=== PATIENT | female | born 1955 | race Caucasian/White ===

== ENCOUNTER 2016-02-23 14:07 | Outpatient (CLI) | payer OTHER ==
--- NOTE | 2016-02-23 15:29 | RAD ---
4 VIEWS OF LEFT KNEE: Date: 02/23/16 COMPARISON: None. HISTORY: 60-year-old female with pain for 6 months, no history of trauma. FINDINGS: No fracture or dislocation. No radiopaque foreign body or subcutaneous gas. Probable trace knee joint effusion. IMPRESSION: No acute osseous abnormality. POS: [facility]
--- NOTE | 2016-02-23 15:33 | RAD ---
FOUR VIEWS RIGHT KNEE: Date: 02-23-16 Comparison: None. History: Pain for six months, no history of trauma. FINDINGS: No fracture or dislocation. No radiopaque foreign body or subcutaneous gas. No knee joint effusion . IMPRESSION: No acute findings. POS: [facility]
--- NOTE | 2016-02-23 15:34 | RAD ---
TWO VIEWS LEFT HIP: Date: 02-23-16 Comparison: None. History: Pain for six months. No history of trauma. FINDINGS: No fracture or dislocation. No radiopaque foreign body or subcutaneous gas. IMPRESSION: No acute findings. POS: [facility]
--- NOTE | 2016-02-23 16:19 | RAD ---
TWO VIEWS RIGHT HIP: Date: 02-23-16 Comparison: None. History: Right hip pain with no history of trauma. FINDINGS: There is mild lateral acetabular osteophyte formation. No significant joint space narrowing. No fr acture or evidence of dislocation is seen. IMPRESSION: No acute osseous abnormality. If symptoms persist, MRI suggested. POS: [facility]
== END 2016-02-23 14:08 | disposition home or self-care (01) ==
LOC: MADRAD 14:07
PROVIDERS: ATTEND Family Medicine
DX: M25.551 Pain in right hip (principal); M25.552 Pain in left hip; M25.562 Pain in left knee; M25.561 Pain in right knee

== ENCOUNTER 2016-04-07 14:25 | Outpatient (CLI) | payer OTHER ==
[2016-04-07 14:57] LABS: #Basophils 0.1 thou/uL (0.0-0.2); #Eosinphils 0.2 thou/uL (0.0-0.7); #Lymphocytes 2.8 thou/uL (1.20-3.40); #Monocytes 0.6 thou/uL (0.11-0.59); #Neutrophils 5.3 thou/uL (1.40-6.50); %Basophils 0.9 % (0.0-1.0); %Eosinophils 1.9 % (0.0-10.0); %Lymphocytes 31.3 % (21.0-51.0); %Monocytes 6.7 % (0.0-10.0); %Neutrophils 59.1 % (42.0-75.0); Hemoglobin 11.1 g/dL (12.0-16.0); Mean Corpuscular HGB CONC 31.6 g/dL (32.0-36.0); Mean Corpuscular Hemoglobin 26.8 pg (27.0-31.0); Mean Corpuscular Volume 84.7 fl (81.0-99.0); Mean Platelet Volume 7.8 fL (7.4-10.4); Platelet Count 307 thou/uL (130-400); RBC Distribution Width 16.9 % (11.5-14.5); Red Blood Cell (RBC) Count 4.16 mill/uL (4.20-5.40)
[2016-04-07 15:06] LABS: Hemoglobin A1c 5.4 % (4.0-6.0)
[2016-04-07 15:19] LABS: ALT (SGPT) 8 U/L (0-55); AST (SGOT) 14 U/L (5-34); Albumin 4.1 g/dL (3.5-5.0); Alkaline Phosphatase 106 U/L (40-150); Anion Gap 17 mmol/L (10-20); BUN (Urea Nitrogen) 12 mg/dL (9.8-20.1); Bilirubin, Total Less than 0.3 mg/dL (0.2-1.2); CK (CPK) 53 U/L (29-168); CRP (Inflammatory) 2.33 mg/dL (= or < 0.5); Calc. Creatinine Clearance 0 mL/min (70-130); Calcium 9.5 mg/dL (7.8-10.44); Carbon Dioxide 26 mmol/L (22-29); Chloride 101 mmol/L (98-107); Estimated GFR-MDRD 78; Glucose 91 mg/dL (70-105); Potassium 3.7 mmol/L (3.5-5.1); Protein, Total 7.1 g/dL (6.0-8.3); Sodium 140 mmol/L (136-145)
[2016-04-07 16:14] LABS: Thyroid Stimulating Hormone 1.7286 uIU/mL (0.35-4.94); Vitamin D, 25 Hydroxy 29.3 ng/mL (> 30.0)
[2016-04-09 07:28] LABS: Antinuclear AB Negative (Negative)
[2016-04-11 09:09] LABS: Lyme IgG/IgM AB <0.91 ISR (0.00-0.90)
[2016-04-12 13:15] LABS: Vitamin B6-Pyridoxal Phosphate 5.5 ug/L (2.0-32.8)
== END 2016-04-07 14:26 | disposition home or self-care (01) ==
LOC: MADLAB 14:25
PROVIDERS: ATTEND Student in an Organized Health Care Education/Training Program
DX: E53.8 Deficiency of other specified B group vitamins (principal); E55.9 Vitamin D deficiency, unspecified; E51.9 Thiamine deficiency, unspecified; M62.89 Other specified disorders of muscle; E53.1 Pyridoxine deficiency; M25.50 Pain in unspecified joint; R20.2 Paresthesia of skin
CPT/HCPCS: 36415; 80053; 82306; 82550; 82607; 83036; 84207; 84425; 84443; 85025; 85652; 86038; 86140; 86430; 86618

== ENCOUNTER 2016-07-20 10:40 | Outpatient (CLI) | payer OTHER ==
[2016-07-20 11:23] LABS: Hemoglobin A1c 5.5 % (4.0-6.0)
[2016-07-20 11:40] LABS: ALT (SGPT) 18 U/L (8-55); AST (SGOT) 15 U/L (5-34); Albumin 3.9 g/dL (3.5-5.0); Alkaline Phosphatase 67 U/L (40-150); Anion Gap 13 mmol/L (10-20); BUN (Urea Nitrogen) 17 mg/dL (9.8-20.1); Bilirubin, Total 0.3 mg/dL (0.2-1.2); Calc. Creatinine Clearance 0 mL/min (70-130); Calcium 9.1 mg/dL (7.8-10.44); Carbon Dioxide 26 mmol/L (22-29); Cardiac Risk 2.4 (Less than 4.5); Chloride 104 mmol/L (98-107); Cholesterol 197 mg/dl (< 200 Desired); Estimated GFR-MDRD 61; Globulin 2.7 g/dL (2.4-3.5); Glucose 152 mg/dL (70-105); HDL Cholesterol 82 mg/dL (>60 Neg Risk); LDL Cholesterol, Calculated 99 mg/dL; Protein, Total 6.6 g/dL (6.0-8.3); Sodium 139 mmol/L (136-145); Triglycerides 82 mg/dL (Less than 150)
[2016-07-20 12:05] LABS: #Lymphocytes 1.4 thou/uL (1.20-3.40); #Monocytes 0.2 thou/uL (0.11-0.59); #Neutrophils 11.6 thou/uL (1.40-6.50); %Basophils 0.3 % (0.0-1.0); %Eosinophils 0.1 % (0.0-10.0); %Lymphocytes 10.3 % (21.0-51.0); %Monocytes 1.2 % (0.0-10.0); %Neutrophils 88.1 % (42.0-75.0); Hemoglobin 12.3 g/dL (12.0-16.0); Mean Corpuscular HGB CONC 30.9 g/dL (32.0-36.0); Mean Corpuscular Hemoglobin 27.3 pg (27.0-31.0); Mean Corpuscular Volume 88.3 fl (81.0-99.0); Mean Platelet Volume 8.1 fL (7.4-10.4); Platelet Count 302 thou/uL (130-400); RBC Distribution Width 17.7 % (11.5-14.5); White Blood Cell (WBC) Count 13.2 thou/uL (4.8-10.8)
[2016-07-20 12:43] LABS: Thyroid Stimulating Hormone 0.634 uIU/mL (0.35-4.94); Vitamin D, 25 Hydroxy 29.9 ng/ml (> 30.0)
== END 2016-07-20 10:41 | disposition home or self-care (01) ==
LOC: MADLABBHPM 10:40
PROVIDERS: ATTEND Family Medicine
DX: Z00.00 Encounter for general adult medical examination without abnormal findings (principal)
CPT/HCPCS: 36415; 80053; 80061; 82306; 83036; 84443; 85025

== ENCOUNTER 2016-09-29 10:08 | Outpatient (CLI) | payer OTHER | END 2016-09-29 10:09 | disposition home or self-care (01) | LOC: MADLABBHPM 10:08 | PROVIDERS: ATTEND Family Medicine | DX: R30.0 Dysuria (principal) | CPT/HCPCS: 36415; 87077; 87086; 87186 ==

== ENCOUNTER 2017-12-15 11:35 | Outpatient (CLI) | payer BC, OTHER ==
[2017-12-15 13:04] LABS: Bilirubin Negative (Negative); Blood, Urine Negative (Negative); Clarity Clear (Clear); Glucose, Urine (Dipstick) Negative (Negative); Leukocyte Trace (Negative); Nitrite Negative (Negative); Protein, Urine (Dipstick) Negative (Neg-Trace); Urobilinogen 0.2 mg/dL (0.2-1.0)
[2017-12-15 13:11] LABS: Bacteria/HPF Rare-Few HPF (None Seen); RBC/HPF 0-3 HPF (0-3); Squamous Epithelial 0-3 HPF (0-3)
== END 2017-12-15 11:36 ==
LOC: MADLABBHPM 11:35
PROVIDERS: ATTEND Family Medicine
DX: R30.0 Dysuria (principal)
CPT/HCPCS: 81001; 87086

== ENCOUNTER 2017-12-18 20:21 | Emergency (ER) | payer BC ==
[2017-12-18 20:47] LABS: #Basophils 0.1 thou/uL (0.0-0.2); #Eosinphils 0.1 thou/uL (0.0-0.7); #Lymphocytes 4.3 thou/uL (1.20-3.40); #Monocytes 0.7 thou/uL (0.11-0.59); #Neutrophils 13.5 thou/uL (1.40-6.50); %Basophils 0.5 % (0.0-1.0); %Eosinophils 0.3 % (0.0-10.0); %Lymphocytes 22.8 % (21.0-51.0); %Monocytes 3.9 % (0.0-10.0); %Neutrophils 72.4 % (42.0-75.0); Hemoglobin 12.5 g/dL (12.0-16.0); Mean Corpuscular HGB CONC 34.5 g/dL (32.0-36.0); Mean Corpuscular Hemoglobin 31.9 pg (27.0-31.0); Mean Corpuscular Volume 92.5 fL (78.0-98.0); Mean Platelet Volume 7.4 fL (7.4-10.4); Platelet Count 407 thou/uL (130-400); RBC Distribution Width 13.3 % (11.5-14.5); Red Blood Cell (RBC) Count 3.93 mill/uL (4.20-5.40); White Blood Cell (WBC) Count 18.6 thou/uL (4.8-10.8)
[2017-12-18 21:06] LABS: ALT (SGPT) 17 U/L (8-55); AST (SGOT) 20 U/L (5-34); Albumin 4.1 g/dL (3.4-4.8); Alkaline Phosphatase 107 U/L (40-150); Anion Gap 17 mmol/L (10-20); BUN (Urea Nitrogen) 14 mg/dL (9.8-20.1); Bilirubin, Total 0.4 mg/dL (0.2-1.2); Calc. Creatinine Clearance 0 mL/min (70-130); Calcium 9.8 mg/dL (7.8-10.44); Carbon Dioxide 26 mmol/L (23-31); Chloride 101 mmol/L (98-107); Estimated GFR-MDRD 43; Globulin 2.5 g/dL (2.4-3.5); Glucose 140 mg/dL (80-115); Lipase 38 U/L (8-78); Potassium 4.1 mmol/L (3.5-5.1); Protein, Total 6.6 g/dL (6.0-8.3); Sodium 140 mmol/L (136-145)
[2017-12-18] MEDS ORDERED: Morphine 4 MG/ML VIAL ONE (21:18)
--- NOTE | 2017-12-18 21:23 | RAD ---
CHEST PA AND LATERAL TWO VIEWS: History: 62-year-old female with left sided chest pain. FINDINGS: There is a left sided breast prosthesis. Heart size is within normal limits. The lungs are clear. No pneumonia, edema, or pleural effusion or other acute process. Minimal biapical pleural thickening. IMPRESSION: No acute intrathoracic disease. No pneumothorax or pleural effusion. Biapical pleural thickening. POS: [facility]
--- NOTE | 2017-12-18 21:24 | RAD ---
LEFT RIBS TWO VIEWS: History: 62-year-old female with left chest pain. FINDINGS: Left breast implant is noted. There is some motion artifact on the AP radiograph. No evidence for acu te rib fracture. No pneumothorax or pleural effusion. IMPRESSION: No convincing evidence for acute rib fracture. No pneumothorax or pleural effusion. Left apical pleur al thickening. POS: [facility]
[2017-12-18] MEDS ORDERED: Acetaminophen 500 MG TAB ONE ×2 (21:48)
[2017-12-18] MEDS ORDERED: Phenergan/Codeine 10-6.25mg/5ml UDCUP ONE (21:51)
== END 2017-12-18 22:10 | disposition home or self-care (01) ==
LOC: MADERS 20:21
DX: R07.89 Other chest pain (principal); R05 Cough; J45.909 Unspecified asthma, uncomplicated; F41.9 Anxiety disorder, unspecified; F17.210 Nicotine dependence, cigarettes, uncomplicated; Z79.899 Other long term (current) drug therapy
CPT/HCPCS: 71046; 80053; 83690; 84484; 85025; 93005; 96374; J2270

== ENCOUNTER 2023-01-29 09:28 | Emergency (ER) | payer MEDICARE | END 2023-01-29 10:20 | disposition home or self-care (01) | LOC: MADERS 09:28 | DX: B02.9 Zoster without complications (principal); K29.70 Gastritis, unspecified, without bleeding; F17.210 Nicotine dependence, cigarettes, uncomplicated | CPT/HCPCS: 99283 ==

== ENCOUNTER 2023-03-11 11:06 | Outpatient (CLI) | payer MEDICARE | END 2023-03-11 11:07 | disposition home or self-care (01) | LOC: MADRAD 11:06 | PROVIDERS: ATTEND Internal Medicine | DX: J45.901 Unspecified asthma with (acute) exacerbation (principal); M41.9 Scoliosis, unspecified; R91.8 Other nonspecific abnormal finding of lung field | CPT/HCPCS: 71046; 72081 ==

== ENCOUNTER 2023-06-29 14:24 | Emergency (ER) | payer MEDICARE ==
[2023-06-29] MEDS ORDERED: Dexamethasone 10 MG/ML VIAL ONE (15:40)
[2023-06-29] MEDS ORDERED: Lidocaine 4% Patch ONE (15:41)
== END 2023-06-29 16:10 | disposition home or self-care (01) ==
LOC: MADERS 14:24
DX: M54.50 Low back pain, unspecified (principal); G89.29 Other chronic pain; I73.9 Peripheral vascular disease, unspecified; F17.210 Nicotine dependence, cigarettes, uncomplicated
CPT/HCPCS: 96372; 99283; J1100

== ENCOUNTER 2023-08-22 15:07 | Emergency (ER) | payer MEDICARE ==
[2023-08-22 16:39] LABS: #Basophils 0.1 thou/uL (0.0-0.2); #Eosinphils 0.6 thou/uL (0.0-0.7); #Lymphocytes 2.1 thou/uL (1.20-3.40); #Monocytes 0.8 thou/uL (0.11-0.59); #Neutrophils 5.4 thou/uL (1.40-6.50); %Basophils 1.3 % (0.0-1.0); %Eosinophils 6.5 % (0.0-10.0); %Monocytes 9.4 % (0.0-10.0); %Neutrophils 59.8 % (42.0-75.0); Hematocrit 37.3 % (36.0-47.0); Hemoglobin 11.9 g/dL (12.0-16.0); Mean Corpuscular HGB CONC 31.7 g/dL (32.0-36.0); Mean Corpuscular Hemoglobin 29.1 pg (27.0-31.0); Mean Corpuscular Volume 91.8 fl (78.0-98.0); Mean Platelet Volume 7.3 fL (7.4-10.4); Platelet Count 313 10x3/uL (130-400); RBC Distribution Width 14.8 % (11.5-14.5); Red Blood Cell (RBC) Count 4.07 mill/uL (4.20-5.40)
[2023-08-22 16:50] LABS: ALT (SGPT) Less than 7 U/L (8-55); AST (SGOT) 13 U/L (5-34); Albumin 3.7 g/dL (3.4-4.8); Alkaline Phosphatase 128 U/L (40-110); Anion Gap 15 mmol/L (10-20); BUN (Urea Nitrogen) 18 mg/dL (9.8-20.1); Bilirubin, Total 0.2 mg/dL (0.2-1.2); Calc. Creatinine Clearance 0 mL/min (70-130); Calcium 9.4 mg/dL (7.8-10.44); Carbon Dioxide 26 mmol/L (23-31); Chloride 104 mmol/L (98-107); Estimated GFR 57; Globulin 2.8 g/dL (2.4-3.5); Glucose 81 mg/dL (80-115); Magnesium 2.1 mg/dL (1.6-2.6); Potassium 3.8 mmol/L (3.5-5.1); Protein, Total 6.5 g/dL (5.8-8.1); Sodium 141 mmol/L (136-145)
[2023-08-22 17:16] LABS: Bilirubin Moderate (Negative); Blood, Urine Negative (Negative); Glucose, Urine (Dipstick) Negative (Negative); Ketone, Urine Trace mg/dL (Negative); Leukocyte Negative (Negative); Nitrite Negative (Negative); Protein, Urine (Dipstick) 30 mg/dL (Neg-Trace); pH, Urine 5.5 (5.0-9.0)
[2023-08-22 17:28] LABS: Specific Gravity, Urine 1.027 (1.002-1.036)
[2023-08-22 17:29] LABS: Bacteria/HPF Rare-Few HPF (None Seen); CAUTI Indications for Culture Alt mental st,lethar; Clarity Hazy (Clear); Mucous/LPF 2+ LPF (<2+); RBC/HPF None Seen HPF (0-3)
[2023-08-22 17:30] LABS: Urine Culture Reflex No No
== END 2023-08-22 18:00 | disposition home or self-care (01) ==
LOC: MADERS 15:07
DX: I95.9 Hypotension, unspecified (principal); F17.210 Nicotine dependence, cigarettes, uncomplicated
CPT/HCPCS: 36415; 80053; 81001; 83735; 85025; 99284

== ENCOUNTER 2023-10-25 08:44 | Outpatient (CLI) | payer MEDICARE | END 2023-10-25 08:45 | disposition home or self-care (01) | LOC: MADLAB 08:44 | PROVIDERS: ATTEND Nurse Practitioner Family | DX: R05.1 Acute cough (principal); R91.8 Other nonspecific abnormal finding of lung field; J98.4 Other disorders of lung; Z87.81 Personal history of (healed) traumatic fracture | CPT/HCPCS: 71046 ==

== ENCOUNTER 2024-02-23 11:22 | Outpatient (CLI) | payer MEDICARE, OTHER | END 2024-02-23 11:23 | disposition home or self-care (01) | LOC: MADLAB 11:22 | PROVIDERS: ATTEND Nurse Practitioner Family | DX: M47.26 Other spondylosis with radiculopathy, lumbar region (principal); M41.9 Scoliosis, unspecified; M47.814 Spondylosis without myelopathy or radiculopathy, thoracic region | CPT/HCPCS: 72072; 72100 ==